=== PATIENT | female | born 1935 | race Caucasian/White ===

== ENCOUNTER 2022-10-06 17:26 | Inpatient (IN) | payer OTHER ==
[~2022-10-06] VITALS: Ht 165.1 cm; Wt 127.0 kg
[~2022-10-06 17:26] MED LIST: HIGH BLOOD PRESSURE
[2022-10-06 17:36] VITALS: BP_SYST 116; PULSE 68; RESP 22; TEMP 98.1; O2SAT 88
[2022-10-06] MEDS ORDERED: METF-1069 PO (17:40)
[2022-10-06] MEDS ORDERED: GABA-331 PO (17:40)
[2022-10-06] MEDS ORDERED: PRAM0.5T10 PO (17:40)
[2022-10-06] MEDS ORDERED: SPIR25TA6 PO (17:40)
[2022-10-06] MEDS ORDERED: HYDR-3917 PO (17:40)
[2022-10-06] MEDS ORDERED: ONDA4TAB55 PO (17:40)
[2022-10-06] MEDS ORDERED: SERT-436 PO (17:40)
[2022-10-06] MEDS ORDERED: ACET325C6 PO (17:42)
[2022-10-06 19:21] LABS: BILIRUBIN,URINE NEGATIVE (NEGATIVE); BLOOD, URINE NEGATIVE (NEGATIVE); COLOR,URINE YELLOW (YELLOW); GLUCOSE,URINE NEGATIVE (NEGATIVE); KETONES,URINE NEGATIVE (NEGATIVE); LEUKOCYTE ESTERASE ,URINE 1+ (NEGATIVE); NITRITE, URINE NEGATIVE (NEGATIVE); PROTEIN URINE NEGATIVE (NEGATIVE); UROBILINOGEN,URINE 0.2 (0.2-1.0)
[2022-10-06 19:25] LABS: CLARITY/URINE SLIGHTLY HAZY (CLEAR)
[2022-10-06 19:38] LABS: BASOPHILS % (AUTO) 0.5 % (0.0-2.0); EOSINOPHILS # (AUTO) 0.1 K/uL (0.0-0.4); EOSINOPHILS % (AUTO) 0.6 % (0.0-4.0); HEMATOCRIT 36.6 % (36-48); HEMOGLOBIN 11.5 g/dL (12.0-16.0); LYMPHOCYTES # (AUTO) 1.3 K/uL (1.0-5.5); LYMPHOCYTES % (AUTO) 14.4 % (20.5-51.5); MEAN CORPUSCULAR HEMOGLOBIN 30 pg (27-31); MEAN CORPUSCULAR HGB CONC 31 % (32-36); MEAN CORPUSCULAR VOLUME 94 fL (79.0-98.0); MONOCYTES # (AUTO) 0.9 K/uL (0.0-1.0); MONOCYTES % (AUTO) 9.7 % (1.7-9.3); NEUTROPHILS # (AUTO) 6.7 K/uL (1.8-7.7); NEUTROPHILS % (AUTO) 74.8 % (40.0-70.0); PLATELET COUNT (AUTO) 221 K/uL (130-430); RED BLOOD CELL COUNT(AUTO) 3.89 MIL/uL (4.2-6.2); RED CELL DISTRIBUTION WIDTH 15.1 % (9.0-15.0)
[2022-10-06 19:51] LABS: PROTHROMBIN TIME 10.5 SECS (9.5-12.5)
[2022-10-06] MEDS ORDERED: PIPERACILLIN/TAZO 3.375 GM in NS 50 ML IV ONE (20:00)
[2022-10-06 20:04] LABS: RBC,URINE NONE SEEN /HPF (0-3); WBC,URINE 20-50 /HPF (0-3)
[2022-10-06 20:05] LABS: BACTERIA,URINE FEW /HPF (None Seen); MUCUS,URINE 1+ /LPF (None Seen)
[2022-10-06] MEDS ORDERED: PIPERACILLIN/TAZOBACTAM 3.375 GM/VIAL (ZOSYN) IV ONE (20:08)
[2022-10-06 20:14] LABS: ANION GAP 2 (5-15); CALCIUM 7.9 mg/dL (8.4-11.0); CARBON DIOXIDE 36 mmol/L (23-29); CHLORIDE 100 mmol/L (98-107); CREATININE 1.29 mg/dL (0.55-1.30); GLUCOSE 125 mg/dL (74-106); POTASSIUM 5.3 mmol/L (3.5-5.1); SODIUM SERUM 138 mmol/L (136-145); UREA NITROGEN, BLOOD 40 mg/dL (8-21)
[2022-10-06 20:21] LABS: ALANINE AMINOTRANSFERASE 18 U/L (12-78); ALBUMIN 3.1 g/dL (3.4-4.8); ASPARTATE AMINOTRANSFERASE 22 U/L (10-37); TOTAL BILIRUBIN 0.3 mg/dL (0.0-1.0); TOTAL PROTEIN, SERUM 6.2 g/dL (6.4-8.3)
[2022-10-06] MEDS ORDERED: NACL 0.9% 1,000 ML IV ONE (21:00)
[2022-10-06] MEDS ORDERED: NS 500 ML IV ONE (21:15)
[2022-10-06] MEDS ORDERED: KETOROLAC TROMETHAMINE 30 MG VIAL IVP ONE (21:30)
[2022-10-06 22:00] VITALS: BP_SYST 151; PULSE 71; RESP 20; TEMP 97.2; O2SAT 96
[2022-10-06] MEDS ORDERED: DEXTROSE 50% JECT 50 ML DISP.SYRIN IVP PRN (22:45)
[2022-10-06] MEDS ORDERED: GLUCOSE (DEXTROSE) ORAL GEL -Adults PO PRN (22:45)
[2022-10-06] MEDS ORDERED: NALOXONE HCL 0.4 MG/ML AMP (NARCAN) IVP PRN (22:45)
[2022-10-06] MEDS ORDERED: D5W 1,000 ML IV PRN (22:45)
[2022-10-06] MEDS ORDERED: PIPERACILLIN/TAZOBACTAM 2.25 GM VIAL IV ONE (22:53)
[2022-10-06 22:54] VITALS: BP_SYST 151; PULSE 71; RESP 20; TEMP 97.2; O2SAT 96
[2022-10-06] MEDS: LACTULOSE 20 GM/30 ML UDC PO SCH (23:00)
[2022-10-06] MEDS ORDERED: ACETAMINOPHEN 325 MG TABLET PO PRN (23:00)
[2022-10-06] MEDS ORDERED: ONDANSETRON HCL 4 MG/2 ML VIAL IVP PRN (23:00)
[2022-10-06] MEDS ORDERED: IPRATROPIUM/ALBUTEROL SULFATE 3 ML AMPUL.NEB (DUONEB) INH SCH (23:00)
[2022-10-06] MEDS ORDERED: ENOXAPARIN SODIUM 30 MG/0.3 ML SYRINGE SUBCUT ONE (23:00)
[2022-10-06] MEDS ORDERED: MORPHINE 4 MG INJ. 4 MG/ML VIAL IVP PRN (23:00)
[2022-10-06] MEDS ORDERED: LORazepam 2 MG/ML VIAL IVP PRN (23:00)
[2022-10-06] MEDS: DOCUSATE SODIUM 250 MG CAPSULE PO SCH (23:00)
[2022-10-07] VITALS (8 sets, daily range): BP systolic 125–141; PULSE 65–84; RESP 18–20; TEMP 96–99.2; O2SAT 89–94
[2022-10-07] MEDS ORDERED: PIPERACILLIN/TAZOBACTAM 2.25 GM in NS 50 ML IV SCH ×2
[2022-10-07] MEDS: SODIUM POLYSTYRENE SULFONATE 15 GM/60 ML UDBTL PO ONE ×2 (00:30→02:29)
[2022-10-07] MEDS ORDERED: AZITHROMYCIN 500 MG/VIAL (ZITHROMAX) IV ONE (02:03)
[2022-10-07] MEDS ORDERED: PIPERACILLIN/TAZOBACTAM 3.375 GM/VIAL (ZOSYN) IV ONE (02:03)
[2022-10-07 02:11] LABS: INFLUENZA TYPE A negative (NEGATIVE); INFLUENZA TYPE B NEGATIVE (NEGATIVE)
[2022-10-07] MEDS: AZITHROMYCIN 500 MG in NS 250 ML IV SCH ×2 (02:17→22:43)
[2022-10-07] MEDS: PIPERACILLIN/TAZO 3.375/DEX-IS 50 ML IV SCH ×5 (05:17→22:45)
[2022-10-07] MEDS: IPRATROPIUM/ALBUTEROL SULFATE 3 ML AMPUL.NEB (DUONEB) INH SCH ×3 (07:16→15:54)
[2022-10-07 07:21] LABS: BASOPHILS % (AUTO) 0.3 % (0.0-2.0); EOSINOPHILS # (AUTO) 0.1 K/uL (0.0-0.4); EOSINOPHILS % (AUTO) 1.2 % (0.0-4.0); HEMATOCRIT 36.7 % (36-48); HEMOGLOBIN 11.4 g/dL (12.0-16.0); LYMPHOCYTES # (AUTO) 1.3 K/uL (1.0-5.5); LYMPHOCYTES % (AUTO) 17.1 % (20.5-51.5); MEAN CORPUSCULAR HEMOGLOBIN 29 pg (27-31); MEAN CORPUSCULAR HGB CONC 31 % (32-36); MEAN CORPUSCULAR VOLUME 94 fL (79.0-98.0); MONOCYTES # (AUTO) 0.7 K/uL (0.0-1.0); NEUTROPHILS # (AUTO) 5.4 K/uL (1.8-7.7); NEUTROPHILS % (AUTO) 71.4 % (40.0-70.0); PLATELET COUNT (AUTO) 217 K/uL (130-430); RED BLOOD CELL COUNT(AUTO) 3.91 MIL/uL (4.2-6.2); RED CELL DISTRIBUTION WIDTH 15.3 % (9.0-15.0); WHITE BLOOD COUNT (AUTO) 7.5 K/uL (4.8-10.8)
[2022-10-07 08:13] LABS: ALANINE AMINOTRANSFERASE 14 U/L (12-78); ANION GAP 4 (5-15); ASPARTATE AMINOTRANSFERASE 27 U/L (10-37); CALCIUM 8.1 mg/dL (8.4-11.0); CARBON DIOXIDE 33 mmol/L (23-29); CHLORIDE 101 mmol/L (98-107); GLUCOSE 122 mg/dL (74-106); POTASSIUM 5.1 mmol/L (3.5-5.1); SODIUM SERUM 138 mmol/L (136-145); TOTAL BILIRUBIN 0.4 mg/dL (0.0-1.0); TOTAL PROTEIN, SERUM 6.5 g/dL (6.4-8.3); UREA NITROGEN, BLOOD 36 mg/dL (8-21)
[2022-10-07] MEDS: LACTULOSE 20 GM/30 ML UDC PO SCH ×2 (08:54→22:41)
[2022-10-07] MEDS: SERTRALINE HCL 50 MG TABLET PO SCH (08:54)
[2022-10-07] MEDS: HYDROcodone/ACETAMIN 5-325 MG TAB (NORCO/ VICODIN) PO SCH ×3 (08:57→22:41)
[2022-10-07] MEDS: DOCUSATE SODIUM 250 MG CAPSULE PO SCH ×2 (08:57→22:41)
[2022-10-07] MEDS ORDERED: FUROSEMIDE 20 MG TABLET PO ONE (13:00)
[2022-10-07 14:49] LABS: ABG O2 SAT% ESTIMATE 88.2 % (94.0-100.0); ALLEN'S TEST POSITIVE (P); BLOOD GAS BASE EXCESS 5.8 mmol/L (-3.0-3.0); BLOOD GAS HCO3 34.5 mmol/L (21.0-27.0); BLOOD GAS PCO2 68.9 mmHg (35.0-45.0); BLOOD GAS PH 7.318 (7.350-7.450); BLOOD GAS PO2 60.3 mmHg (75.0-100.0)
[2022-10-07] MEDS: GABAPENTIN 100 MG CAPSULE PO SCH ×2 (15:13→22:42)
[2022-10-07] MEDS: PRAMIPEXOLE DI-HCL 0.25 MG TABLET PO SCH (22:42)
[2022-10-07] MEDS: ENOXAPARIN SODIUM 30 MG/0.3 ML SYRINGE SUBCUT SCH (22:43)
[2022-10-07] MEDS: INSULIN REGULAR, HUMAN 100 UNITS/ML, 3 ML VIAL (humuLIN R) SUBCUT PRN (22:46)
[2022-10-08] VITALS (10 sets, daily range): BP systolic 128–152; PULSE 64–86; RESP 18–20; TEMP 96.7–98.3; O2SAT 87–95
[2022-10-08] MEDS: IPRATROPIUM/ALBUTEROL SULFATE 3 ML AMPUL.NEB (DUONEB) INH SCH ×4 (07:15→19:55)
[2022-10-08] MEDS: SERTRALINE HCL 50 MG TABLET PO SCH (09:14)
[2022-10-08] MEDS: DOXYCYCLINE HYCLATE 100 MG CAPSULE PO SCH ×2 (09:14→22:20)
[2022-10-08] MEDS: LACTULOSE 20 GM/30 ML UDC PO SCH ×2 (09:14→22:19)
[2022-10-08] MEDS: FUROSEMIDE 20 MG TABLET PO SCH (09:15)
[2022-10-08] MEDS: HYDROcodone/ACETAMIN 5-325 MG TAB (NORCO/ VICODIN) PO SCH ×3 (09:17→22:20)
[2022-10-08] MEDS: DOCUSATE SODIUM 250 MG CAPSULE PO SCH ×2 (09:17→22:20)
[2022-10-08] MEDS: GABAPENTIN 100 MG CAPSULE PO SCH ×3 (10:33→22:20)
[2022-10-08] MEDS: INSULIN REGULAR, HUMAN 100 UNITS/ML, 3 ML VIAL (humuLIN R) SUBCUT PRN (11:30)
[2022-10-08] MEDS: ENOXAPARIN SODIUM 30 MG/0.3 ML SYRINGE SUBCUT SCH (22:19)
[2022-10-08] MEDS: PRAMIPEXOLE DI-HCL 0.25 MG TABLET PO SCH (22:23)
[2022-10-09] VITALS (9 sets, daily range): BP systolic 112–156; PULSE 68–81; RESP 18–20; TEMP 96.8–97.6; O2SAT 92–96
[2022-10-09] MEDS: IPRATROPIUM/ALBUTEROL SULFATE 3 ML AMPUL.NEB (DUONEB) INH SCH ×4 (08:46→19:52)
[2022-10-09] MEDS: DOXYCYCLINE HYCLATE 100 MG CAPSULE PO SCH ×2 (09:18→21:58)
[2022-10-09] MEDS: DOCUSATE SODIUM 250 MG CAPSULE PO SCH ×2 (09:18→22:02)
[2022-10-09] MEDS: LACTULOSE 20 GM/30 ML UDC PO SCH ×2 (09:18→21:00)
[2022-10-09] MEDS: GABAPENTIN 100 MG CAPSULE PO SCH ×3 (09:18→22:00)
[2022-10-09] MEDS: FUROSEMIDE 20 MG TABLET PO SCH (09:19)
[2022-10-09] MEDS: HYDROcodone/ACETAMIN 5-325 MG TAB (NORCO/ VICODIN) PO SCH ×3 (09:19→22:03)
[2022-10-09] MEDS: SERTRALINE HCL 50 MG TABLET PO SCH (09:19)
[2022-10-09] MEDS ORDERED: IPRA3AMP9 INH (17:56)
[2022-10-09] MEDS ORDERED: DOXY100C5 PO (17:58)
[2022-10-09] MEDS ORDERED: FUROSEMIDE 20 MG TABLET PO ONE (18:15)
[2022-10-09] MEDS: ENOXAPARIN SODIUM 30 MG/0.3 ML SYRINGE SUBCUT SCH (21:00)
[2022-10-09] MEDS: PRAMIPEXOLE DI-HCL 0.25 MG TABLET PO SCH (22:40)
[2022-10-10] VITALS (14 sets, daily range): BP systolic 133–162; PULSE 69–79; RESP 14–20; TEMP 96.8–97.9; O2SAT 88–97
[2022-10-10] MEDS: IPRATROPIUM/ALBUTEROL SULFATE 3 ML AMPUL.NEB (DUONEB) INH PRN ×2 (02:17→23:27)
[2022-10-10] MEDS: IPRATROPIUM/ALBUTEROL SULFATE 3 ML AMPUL.NEB (DUONEB) INH SCH ×4 (07:34→20:29)
[2022-10-10] MEDS: DOXYCYCLINE HYCLATE 100 MG CAPSULE PO SCH ×2 (09:00→21:44)
[2022-10-10] MEDS: DOCUSATE SODIUM 250 MG CAPSULE PO SCH ×2 (09:00→21:00)
[2022-10-10] MEDS: HYDROcodone/ACETAMIN 5-325 MG TAB (NORCO/ VICODIN) PO SCH ×3 (10:16→21:45)
[2022-10-10] MEDS: FUROSEMIDE 20 MG TABLET PO SCH ×2 (12:00→14:13)
[2022-10-10] MEDS: GABAPENTIN 100 MG CAPSULE PO SCH ×3 (14:12→21:44)
[2022-10-10] MEDS: LACTULOSE 20 GM/30 ML UDC PO SCH ×2 (14:12→21:00)
[2022-10-10] MEDS: SERTRALINE HCL 50 MG TABLET PO SCH (14:12)
[2022-10-10] MEDS: ENOXAPARIN SODIUM 30 MG/0.3 ML SYRINGE SUBCUT SCH (21:00)
[2022-10-10] MEDS: PRAMIPEXOLE DI-HCL 0.25 MG TABLET PO SCH (21:00)
[2022-10-10] MEDS: methylPREDNISolone SOD SUCC/PF 62.5 MG/ML VIAL IVP SCH (21:53)
[2022-10-11] VITALS (8 sets, daily range): BP systolic 158–197; PULSE 68–85; RESP 18–26; TEMP 97.8–98.3; O2SAT 90–95
[2022-10-11] MEDS: IPRATROPIUM/ALBUTEROL SULFATE 3 ML AMPUL.NEB (DUONEB) INH PRN (03:56)
[2022-10-11] MEDS: methylPREDNISolone SOD SUCC/PF 62.5 MG/ML VIAL IVP SCH (06:00)
[2022-10-11] MEDS: IPRATROPIUM/ALBUTEROL SULFATE 3 ML AMPUL.NEB (DUONEB) INH SCH ×4 (07:46→15:29)
[2022-10-11] MEDS: SERTRALINE HCL 50 MG TABLET PO SCH (09:00)
[2022-10-11] MEDS: DOCUSATE SODIUM 250 MG CAPSULE PO SCH (09:00)
[2022-10-11] MEDS: DOXYCYCLINE HYCLATE 100 MG CAPSULE PO SCH (09:00)
[2022-10-11] MEDS: LACTULOSE 20 GM/30 ML UDC PO SCH (09:00)
[2022-10-11] MEDS: FUROSEMIDE 20 MG TABLET PO SCH ×2 (09:18→12:02)
[2022-10-11] MEDS: HYDROcodone/ACETAMIN 5-325 MG TAB (NORCO/ VICODIN) PO SCH (09:18)
[2022-10-11] MEDS: GABAPENTIN 100 MG CAPSULE PO SCH (09:18)
[2022-10-11] MEDS ORDERED: cloNIDine HCL 0.1 MG/24 HR PATCH.TDWK TD ONE (10:00)
[2022-10-18] MEDS ORDERED: cloNIDine HCL 0.1 MG/24 HR PATCH.TDWK TD SCH (09:00)
== END 2022-10-11 16:50 | disposition hospice, home (50) | DRG 602 ==
LOC: SED 17:26 → STU 20:47 → SMU 10-07 11:18
PROVIDERS: ADMIT Internal Medicine; ATTEND Internal Medicine
DX: L03.116 Cellulitis of left lower limb (principal); J18.9 Pneumonia, unspecified organism; J96.21 Acute and chronic respiratory failure with hypoxia; J96.22 Acute and chronic respiratory failure with hypercapnia; J81.0 Acute pulmonary edema; J44.1 Chronic obstructive pulmonary disease with (acute) exacerbation; N39.0 Urinary tract infection, site not specified; Z68.42 Body mass index [BMI] 45.0-49.9, adult; D63.8 Anemia in other chronic diseases classified elsewhere; E11.9 Type 2 diabetes mellitus without complications; E66.01 Morbid (severe) obesity due to excess calories; E86.0 Dehydration; G47.30 Sleep apnea, unspecified; G89.4 Chronic pain syndrome; L03.115 Cellulitis of right lower limb; I27.81 Cor pulmonale (chronic); F03.90 Unspecified dementia, unspecified severity, without behavioral disturbance, psychotic disturbance, mood disturbance, and anxiety; Z66 Do not resuscitate; J98.01 Acute bronchospasm; Z20.822 Contact with and (suspected) exposure to COVID-19; I50.9 Heart failure, unspecified; I11.0 Hypertensive heart disease with heart failure
CPT/HCPCS: 36415; 36600; 71045; 72170-TC; 73030; 73502; 74018; 80053; 81000; 82803; 82962; 83037; 83605; 83880; 84484; 85025; 85610-TC; 85730-TC; 87040; 87081; 87086; 92610-GN; 93005; 93306; 93970; 94640; 94660; 94760; 97110-GP; 97163-GP; 97530-GP; 99285; G0378; J0456; J0696; J1650; J1885; J2543; J7030; J7050; J7060